=== PATIENT | female | born 1975 | race Caucasian/White ===

== ENCOUNTER 2018-11-26 20:47 | Observation (INO) ==
[2018-11-26] MEDS ORDERED: Ketorolac 30 MG/ML VIAL IVP PRN (22:10)
[2018-11-26] MEDS ORDERED: Acetaminophen 325 MG TABLET PO PRN (22:10)
[2018-11-26] MEDS ORDERED: Naloxone 0.4 MG/ML INJ IVP PRN (22:10)
[2018-11-26] MEDS ORDERED: OXYCODONE Oral CONC 10 MG/0.5 ML ORAL.SYG SL PRN (22:10)
[2018-11-26] MEDS ORDERED: Ringers Solution, Lactated 1,000 ML IVC SCH (22:15)
[2018-11-26 22:34] LABS: Basophils # 0.1 K/mcL (0.0-0.2); Basophils % 0.8 %; Eosinophils # 0.2 K/mcL (0.0-0.6); Eosinophils % 3.6 %; Hematocrit 37.9 % (35.3-44.9); Immature Granulocytes % 0.3 % (0-4); Lymphocytes # 2.6 K/mcL (0.6-4.6); Lymphocytes % 40.8 %; Mean Corpuscular HGB Conc 34.3 g/dL (31.6-35.5); Mean Corpuscular Hemoglobin 29.8 pg (28.0-33.3); Mean Corpuscular Volume 86.9 fL (83.0-100.0); Mean Platelet Volume 11.5 fL (9.4-12.4); Monocytes # 0.5 K/mcL (0.0-1.3); Monocytes % 7.3 %; Platelet Count 192 K/mcL (140-400); Red Blood Count 4.36 M/mcL (3.82-4.97); Red Cell Distribution Width 13.2 % (11.5-14.5); Segmented Neutrophils % 47.2 %; White Blood Count 6.3 K/mcL (4.3-11.1)
[2018-11-26 22:41] LABS: Prothrombin Time 11.3 Seconds (9.4-12.1)
[2018-11-26 22:44] LABS: Activated Partial Thrombo Time 34.8 Seconds (26.0-36.0)
--- NOTE | 2018-11-26 22:51 | Internal Med History&Physical ---
Date of Encounter: 11/26/18 Time of Encounter: 22:50 Internal Medicine - H&P: HPI Chief complaint: R flank pain Admitted From: Hospital to Hospital Transfer Plans for Post Hospital Care: Home History of present illness: Rebecca Clinton is a 43-year-old woman with recurrent kidney stones who has been dealing with a right flank pain for the past 3 weeks and states that thus far she has passed 2 stones but that she continues to have severe right flank pain with radiation to her right groin that was exacerbated today for which reason she decided to seek medical attention. She denies having fever, chills o r dysuria. She does notice that her urine is darker and bloody in appearance. She says she has had multiple kidney stones in the past and always on the right side but she has never had any intervention as she always spontaneously passes them. She went to [facility] emergency room where on CT she was found to have a 6 mm calculus in the proximal right ureter. Her labs are otherwise unremarkable and is transferred here for further care. Vitals: Reviewed General: Well-developed white woman lying comfortably in bed in no acute distress but has antalgic posturing. Skin: Warm, pale and dry. HEENT: Moist mucous membranes. No conjunctivae pallor. Neck: No lymphadenopathy. No JVD. No carotid bruits. No palpable thyroid. Chest: Normal thoracic expansion. Normal breath sounds. Clear to auscultation. Heart: Normal S1 & S2; rhythmic. No rubs or murmurs. Abdomen: Non-distended, soft and non-tender to palpation. (+) R CVA tenderness. Extremities: No clubbing, cyanosis or edema. No calf tenderness. Normal distal pulses. Neurological: Awake, alert and oriented to person, place and time. No focal deficits. Psych: Affect appropriate. Assessment/Plan 1. Right ureterolithiasis: Symptomatic. Will give her a dose of tamsulosin tonight and provide analgesics as needed. Will keep NPO PMN pending urology evaluation in the morning. No signs of infection present warranting antimicrobials. 2. Fibromyalgia: Reported but no longer on medications. 3. RLS: Reported but no longer on medications. 4. DVT prophylaxis: SCDs ordered. Past Med Surg Social Fam HX - Past Medical History Medical history: arthritis, asthma, fibromyalgia, GERD, kidney stones, thyroid disease, syncope Psychiatric history: anxiety, depression - Past Surgical History Surgical History: , cholecystectomy, hysterectomy - Social History Smoking Status: Former smoker Alcohol use: rarely Drug use: none Internal Medicine - H&P: Meds Allergy/AdvReac Type Severity Reaction Status Date / Time ciprofloxacin Allergy Rash Verified 11/26/18 22:17 clarithromycin [From Biaxin] Allergy Rash Verified 11/26/18 22:17 Penicillins Allergy Rash Verified 11/26/18 22:17 Sulfa (Sulfonamide Allergy Rash Verified 11/26/18 22:17 Antibiotics) All Systems PM: A 10-system review of systems was performed and is negative for pertinent findings except as documented above in the HPI. Family history reviewed and found non-contributory. - Constitutional Vitals: Temp Pulse Resp BP Pulse Ox 97.7 F 82 17 145/84 94 11/26/18 22:14 11/26/18 22:14 11/26/18 22:14 11/26/18 22:14 11/26/18 22:14 Exam: . Internal Med - H&P Results - Labs CBC & Chem 7: 11/26/18 22:25 Labs: Short CBC 11/26/18 Range/Units 22:25 WBC 6.3 (4.3-11.1) K/mcL Hgb 13.0 (11.5-15.4) g/dL Hct 37.9 (35.3-44.9) % Plt Count 192 (140-400) K/mcL Neutrophils # 3.0 (1.6-8.9) K/mcL - Time Spent With Patient Total time spent is greater than 50% in coordination of care (as documented) at patient's floor/unit and/or counseling patient: Greater than 35 minutes
[2018-11-26 22:53] LABS: BUN/Creatinine Ratio 26 (6-26); Blood Urea Nitrogen 17 mg/dL (6-20); Carbon Dioxide 25 mEq/L (23-29); Chloride 108 mEq/L (98-107); Glucose 96 mg/dL (70-105); Osmolality,Calculated 291 (280-300); Potassium 3.5 mEq/L (3.5-5.1); Sodium 140 mEq/L (136-145); eGFR For African Americans > 60 (> 60); eGFR For Non-African Americans > 60 (> 60)
[2018-11-27 07:54] VITALS: BP 131/73
--- NOTE | 2018-11-27 08:42 | Urology - Consult Note ---
<Meli Walker N - Last Filed: 11/27/18 08:39> Date of Encounter: 11/27/18 Time of Encounter: 08:00 - Assessment and Plan (1) Ureteral stone with hydronephrosis Status: Acute Assessment and plan: Patient is a 43-year-old female who presents with a 6 mm right proximal ureteral stone and hydronephrosis. Vital signs are stable and afebrile. White blood cell count and renal function are reassuring. We discussed surgical risks and benefits, and patient verbalized understanding. Patient signed consent, and she is prepared undergo a right ureteroscopic stone extraction with holmium laser lithotripsy, basket retrieval, right retrograde pyelogram and right ureteral stent placement this afternoon with Dr. Lew. Patient remained nothing by mouth. Due to the scheduling conflict in the main operating room, the patient has agreed to be discharged and will promptly undergo [facility]. Urology CN:HPI Consult date: 11/27/18 Reason for consult Urology: Hydronephrosis (right ureteral stone) Requesting physician: Lennie Bauman History of present illness: Patient is a 43-year-old female who presents with a 6 mm right proximal ureteral stone and hydronephrosis. Patient initially presented to [facility] with a 3 week history of severe right-sided flank pain, nausea and vomiting. Patient reports pain acutely worsened over the last 24 hours, and she decided to proceed to the emergency department for further evaluation. Patient underwent a CT of the abdomen and pelvis at [facility] revealing a 6 mm right proximal ureteral stone and hydronephrosis. Patient reports she has an extensive history of renal stones passed by medical expulsion, but she has never required surgery for extraction. Patient denies any known family history of r enal stones. Patient reports continued nausea, gross hematuria and flank pain. Patient denies any dysuria, urgency, frequency, fever or chills. Past Med Surg Social Fam HX - Past Medical History Medical history: arthritis, asthma, fibromyalgia, GERD, kidney stones, thyroid disease, syncope Psychiatric history: anxiety, depression - Past Surgical History Surgical History: , cholecystectomy, hysterectomy - Social History Smoking Status: Former smoker Alcohol use: rarely Drug use: none - Additional Family History Additional family history: Documented family history of renal stones Medications and Allergies Levothyroxine [Synthroid] 112 mcg PO ONCE 11/26/18 [History] Cannabidiol (Cbd) Extract [Epidiolex] 100 mg PO DAILY PRN 11/27/18 [History] HydrOXYzine 10 mg PO HS 11/27/18 [History] Montelukast [Singulair] 10 mg PO DAILY 11/27/18 [History] Allergy/AdvReac Type Severity Reaction Status Date / Time ciprofloxacin Allergy Rash Verified 11/26/18 22:17 clarithromycin [From Biaxin] Allergy Rash Verified 11/26/18 22:17 hydromorphone [From Dilaudid] Allergy Cramping Verified 11/27/18 10:25 of the Muscles Penicillins Allergy Rash Verified 11/26/18 22:17 Sulfa (Sulfonamide Allergy Rash Verified 11/26/18 22:17 Antibiotics) Review of Systems - Constitutional no chills, no fatigue, no fever(s) - EENT Nose, mouth and throat: no dizziness, no headache(s) - Cardiovascular no chest pain, no diaphoresis, no dyspnea - Respiratory no cough, no dyspnea - Gastrointestinal abdominal pain, nausea, no vomiting - Genitourinary Genitourinary: flank pain, hematuria, no difficulty urinating, no dysuria, no urinary frequency, no urinary hesitancy, no urinary incontinence, no urinary urgency - Musculoskeletal back pain, no muscle weakness - Integumentary no erythema, no rash - Neurological no confusion, no syncope - Psychiatric no anxiety, no confusion - Hematologic/Lymphatic no easy bleeding, no easy bruising - Allergic/Immunologic no throat swelling, no wheezing Exam Initial Vital Signs Temp Pulse Resp BP Pulse Ox 97.7 F 82 17 145/84 94 11/26/18 22:14 11/26/18 22:14 11/26/18 22:14 11/26/18 22:14 11/26/18 22:14 - General physical appearance Present: well developed, no distress, moderate pain - Eyes Present: PERRL, normal ocular movement - ENT Present: normal nares, no hearing loss, no congestion - Neck Present: no masses, trachea midline, no lymphadenopathy - Respiratory Present: normal respiratory effort - Cardiovascular Cardiovascular exam IM: RRR - Abdomen Abdomen: Present: soft, non tender - Integumentary Present: no rash, no abnormal pigmentation - Neurologic Present: normal coordination - Musculoskeletal Present: normal gait, other (Normal posture) Urology Results - Labs 11/26/18 22:25 11/26/18 22:25 Abnormal lab results Chloride 108 mEq/L (98-107) H 11/26/18 22:25 POC Glucose 111 mg/dL (70-99) H 11/27/18 05:10 Diabetes panel 11/26/18 Range/Units 22:25 Sodium 140 (136-145) mEq/L Potassium 3.5 (3.5-5.1) mEq/L Chloride 108 H (98-107) mEq/L Carbon Dioxide 25 (23-29) mEq/L BUN 17 (6-20) mg/dL Creatinine 0.65 (0.60-1.20) mg/dL Glucose 96 (70-105) mg/dL Calcium 9.0 (8.6-10.3) mg/dL Calcium panel 11/26/18 Range/Units 22:25 Calcium 9.0 (8.6-10.3) mg/dL Pituitary panel 11/26/18 Range/Units 22:25 Sodium 140 (136-145) mEq/L Potassium 3.5 (3.5-5.1) mEq/L Chloride 108 H (98-107) mEq/L Carbon Dioxide 25 (23-29) mEq/L BUN 17 (6-20) mg/dL Creatinine 0.65 (0.60-1.20) mg/dL Glucose 96 (70-105) mg/dL Calcium 9.0 (8.6-10.3) mg/dL Adrenal panel 11/26/18 Range/Units 22:25 Sodium 140 (136-145) mEq/L Potassium 3.5 (3.5-5.1) mEq/L Chloride 108 H (98-107) mEq/L Carbon Dioxide 25 (23-29) mEq/L BUN 17 (6-20) mg/dL Creatinine 0.65 (0.60-1.20) mg/dL Glucose 96 (70-105) mg/dL Calcium 9.0 (8.6-10.3) mg/dL All other labs normal. - Imaging CT scan - abdomen: report reviewed CT scan - pelvis: report reviewed Consult Discharge Plan - Plan Additional Instructions: Go directly to [place] for outpatient procedure Referrals: Christina Winslow, TOMMIE [Primary Care Provider] - <Leandro Lew - Last Filed: 11/27/18 11:01> Date of Encounter: 11/27/18 - Assessment and Plan (1) Hydronephrosis Status: Acute Assessment and plan: Patient transferred from outside facility with obstructing right ureteral calculus and severe pain secondary to hydronephrosis. Discussed findings and options for management. Plan: Urinary diversion with stent placement. Qualifiers: Hydronephrosis type: with ureteral calculous obstruction Qualified Code(s): N13.2 - Hydronephrosis with renal and ureteral calculous obstruction (2) Flank pain Status: Acute Assessment and plan: Secondary to hydronephrosis from obstructing right ureteral calculus. Discussed findings with patient and options for management. Plan: Laser lithotripsy of ureteral calculus and stent placement as outpatient later today. (3) Ureteral stone with hydronephrosis Status: Acute Exam Initial Vital Signs Temp Pulse Resp BP Pulse Ox 97.7 F 82 17 145/84 94 11/26/18 22:14 11/26/18 22:14 11/26/18 22:14 11/26/18 22:14 11/26/18 22:14 Urology Results - Labs 11/26/18 22:25 11/26/18 22:25 Abnormal lab results Chloride 108 mEq/L (98-107) H 11/26/18 22:25 POC Glucose 111 mg/dL (70-99) H 11/27/18 05:10 Diabetes panel 11/26/18 Range/Units 22:25 Sodium 140 (136-145) mEq/L Potassium 3.5 (3.5-5.1) mEq/L Chloride 108 H (98-107) mEq/L Carbon Dioxide 25 (23-29) mEq/L BUN 17 (6-20) mg/dL Creatinine 0.65 (0.60-1.20) mg/dL Glucose 96 (70-105) mg/dL Calcium 9.0 (8.6-10.3) mg/dL Calcium panel 11/26/18 Range/Units 22:25 Calcium 9.0 (8.6-10.3) mg/dL Pituitary panel 11/26/18 Range/Units 22:25 Sodium 140 (136-145) mEq/L Potassium 3.5 (3.5-5.1) mEq/L Chloride 108 H (98-107) mEq/L Carbon Dioxide 25 (23-29) mEq/L BUN 17 (6-20) mg/dL Creatinine 0.65 (0.60-1.20) mg/dL Glucose 96 (70-105) mg/dL Calcium 9.0 (8.6-10.3) mg/dL Adrenal panel 11/26/18 Range/Units 22:25 Sodium 140 (136-145) mEq/L Potassium 3.5 (3.5-5.1) mEq/L Chloride 108 H (98-107) mEq/L Carbon Dioxide 25 (23-29) mEq/L BUN 17 (6-20) mg/dL Creatinine 0.65 (0.60-1.20) mg/dL Glucose 96 (70-105) mg/dL Calcium 9.0 (8.6-10.3) mg/dL All other labs normal.
--- NOTE | 2018-11-27 10:17 | Discharge Summary ---
- NOTES TO OUTPATIENT PROVIDER Notes to Outpatient Provider: Discharge to ambulatory surgery center for Urological intervention today. Date of Encounter: 11/27/18 Time of Encounter: 07:15 - Discharge Diagnosis (1) Ureteral stone with hydronephrosis Priority: Primary Status: Acute Hospital course: Ms. Clinton is a 43 year old female with history of asthma, hypothyroidism, GERD, who was admitted from the OSH due to 6mm proximal R ureteric stoe and hydronephrosis. Normal WBC and renal function. Discussed with Urology and due to limited inpatient OR availabilities, the decision was made to [facility] where they are able to perform right ureteroscopic stone extraction with holmium laser lithotripsy, basket retrieval, right retrograde pyelogram and right ureteral stent placement today. Pt had agreed for the above plan and was escorted to [facility] for urological intervention. Discharge discussed with: patient, nurse, residential property consultant - Time Spent with Patient Total time spent providing and/or coordinating discharge services:25 mins - Discharge Medications Prescriptions: Continued Levothyroxine [Synthroid] 112 mcg PO ONCE Home Medications: Levothyroxine [Synthroid] 112 mcg PO ONCE 11/26/18 [History] Allergies/Adverse Reactions: Allergy/AdvReac Type Severity Reaction Status Date / Time ciprofloxacin Allergy Rash Verified 11/26/18 22:17 clarithromycin [From Biaxin] Allergy Rash Verified 11/26/18 22:17 Penicillins Allergy Rash Verified 11/26/18 22:17 Sulfa (Sulfonamide Allergy Rash Verified 11/26/18 22:17 Antibiotics) Date of admission: 11/26/18 22:03 Primary care physician: Christina Winslow CNP Consults: 11/26/18 22:09 Consult to Urology [CONS] Routine Consulting Provider: Urology Latha Reason for Consult: Transferred from [facility] for 6mm obstructive proximal ureter stone Call Completed: Yes - Constitutional Vitals: Temp Pulse Resp BP Pulse Ox 98.0 F 78 15 131/73 96 11/27/18 07:48 11/27/18 07:48 11/27/18 07:48 11/27/18 07:48 11/27/18 07:48 Exam: General: Well-developed white woman lying comfortably in bed in no acute distress Chest: Clear to auscultation. Heart: Normal S1 & S2; rhythmic. No rubs or murmurs. Abdomen: Non-distended, soft and non-tender to palpation. : (+) R CVA tenderness. Neurological: Awake, alert and oriented to person, place and time. No focal deficits. - Patient Status Disposition: Home, Self-Care Condition: Fair Functional capacity at discharge: independent ambulation - Discharge Instructions Follow Up With: Christina Winslow CNP [Primary Care Provider] - Additional Instructions: Go directly to [place] for outpatient procedure - Diet and Activity Activity: resume usual activities as tolerated Diet: other (diet order per Urology after the intervention)
== END 2018-11-27 09:18 | disposition home or self-care (01) ==
LOC: 3ANU → SUATTDRO 22:03
PROVIDERS: ADMIT Internal Medicine; ATTEND Internal Medicine

== ENCOUNTER 2018-11-27 16:04 | Observation (INO) ==
[2018-11-27] MEDS ORDERED: Acetaminophen 325 MG TABLET PO PRN (17:26)
[2018-11-27] MEDS ORDERED: Naloxone 0.4 MG/ML INJ IVP PRN (17:26)
[2018-11-27] MEDS: *HR* HYDROcodone/Acet 5/325 mg TABLET PO PRN (18:23)
[2018-11-27] MEDS: levoFLOXacin 500 MG/100 ML 500 MG/100 ML BAG IVPB SCH (18:23)
[2018-11-27] MEDS: 0.9 % Sodium Chloride 1,000 ML IVC SCH (18:23)
[2018-11-27] MEDS: Ondansetron 4 MG/2 ML VIAL IVP PRN (18:35)
[2018-11-27] MEDS: Albuterol 2.5 MG/3 ML NEBULIZER IH SCH (19:33)
[2018-11-27] MEDS: Ibuprofen 400 MG TABLET PO PRN (20:46)
[2018-11-28] MEDS: Albuterol 2.5 MG/3 ML NEBULIZER IH SCH ×7 (00:17→20:13)
[2018-11-28] MEDS: *HR* HYDROcodone/Acet 5/325 mg TABLET PO PRN ×3 (00:28→21:16)
[2018-11-28] MEDS: Ondansetron 4 MG/2 ML VIAL IVP PRN ×4 (00:29→21:16)
[2018-11-28] MEDS: *HR* OxyCODONE Immed Rel 5 MG TABLET PO PRN ×2 (01:47→08:14)
[2018-11-28] MEDS: 0.9 % Sodium Chloride 1,000 ML IVC SCH ×2 (01:50→16:26)
[2018-11-28] MEDS: levoFLOXacin 500 MG/100 ML 500 MG/100 ML BAG IVPB SCH (08:15)
--- NOTE | 2018-11-28 09:44 | Urology Progress Note ---
Date of Encounter: 11/28/18 Time of Encounter: 09:42 - Assessment and Plan (1) Reactive airway disease Current Visit: Yes Status: Acute Assessment and plan: Weaning from O2 currently down to 1 L nasal cannula with increase in oxygen saturation to 95%. Discussed case with hospitalist who will also see patient. Plan: Continue 4 hour nebulizers. Wean oxygen as able. Potential for DC home this afternoon. Qualifiers: Asthma severity: moderate Asthma persistence: persistent Asthma complication type: with acute exacerbation Qualified Code(s): J45.41 - Moderate persistent asthma with (acute) exacerbation (2) Ureteral stone with hydronephrosis Current Visit: Yes Status: Acute Assessment and plan: Uncomplicated ureteroscopy holmium laser lithotripsy and right double-J stent placement yesterday. Patient with bladder spasm and right kidney pain during to reflux through right ureteral stent. Plan: B&O suppository. When necessary oxybutynin. Progress Note Subjective: still having pain Narrative: Admitted status post outpatient ureteroscopy laser lithotripsy for reactive airway disease with difficulty maintaining oxygen saturation. Patient has remained on nasal cannula overnight with every 4 hours albuterol nebs. Complains of right flank pain with voiding. Reports wheezing is improving. Objective Initial Vital Signs Temp Pulse Resp BP Pulse Ox 98.2 F 82 16 120/75 94 11/27/18 17:35 11/27/18 17:35 11/27/18 17:35 11/27/18 17:35 11/27/18 17:35 - General physical appearance Present: well nourished, no distress, moderate pain - Respiratory Present: normal respiratory effort - Integumentary Present: no rash, no growths, no abnormal pigmentation - Musculoskeletal Present: normal posture - Psychiatric Present: oriented to time, oriented to person, oriented to place
[2018-11-28] MEDS ORDERED: *HR* Belladonna Alkaloids/Opium 30 MG RECTAL SUPPOSITORY RC ONE (09:47)
[2018-11-28] MEDS ORDERED: Ketorolac 30 MG/ML VIAL IVP ONE (09:49)
--- NOTE | 2018-11-28 10:17 | Discharge Summary ---
Date of Encounter: 11/28/18 Time of Encounter: 10:18 - Discharge Diagnosis (1) Reactive airway disease Priority: Primary Status: Acute Qualifiers: Asthma severity: moderate Asthma persistence: persistent Asthma complication type: with acute exacerbation Qualified Code(s): J45.41 - Moderate persistent asthma with (acute) exacerbation (2) Ureteral stone with hydronephrosis Priority: Secondary Status: Acute - Hospital Course Hospital course: Ms. Clinton is a 43 year old female - Time Spent with Patient Total time spent providing and/or coordinating discharge services: - Impressions Decreasing reactive airway disease with every 4 nebulizers. - Discharge Medications Prescriptions: No Action Levothyroxine [Synthroid] 112 mcg PO ONCE HydrOXYzine 10 mg PO HS Cannabidiol (Cbd) Extract [Epidiolex] 100 mg PO DAILY PRN PRN Reason: Pain Montelukast [Singulair] 10 mg PO DAILY Ciprofloxacin [Cipro] 500 mg PO BID 3 Days #6 tablet Oxybutynin [Ditropan] 5 mg PO Q8HR PRN 7 Days #20 tablet PRN Reason: Bladder irritation/frequency Tamsulosin [Flomax] 0.4 mg PO DAILY 10 Days #10 cap.er.24h Oxycodone HCl/Acetaminophen [Percocet 5-325 mg Tablet] 1 each PO Q4-6H PRN 2 Days #10 tablet PRN Reason: pain Home Medications: Levothyroxine [Synthroid] 112 mcg PO ONCE 11/26/18 [History] Cannabidiol (Cbd) Extract [Epidiolex] 100 mg PO DAILY PRN 11/27/18 [History] Ciprofloxacin [Cipro] 500 mg PO BID 3 Days #6 tablet 11/27/18 [Rx] HydrOXYzine 10 mg PO HS 11/27/18 [History] Montelukast [Singulair] 10 mg PO DAILY 11/27/18 [History] Oxybutynin [Ditropan] 5 mg PO Q8HR PRN 7 Days #20 tablet 11/27/18 [Rx] Oxycodone HCl/Acetaminophen [Percocet 5-325 mg Tablet] 1 each PO Q4-6H PRN 2 Day s #10 tablet 11/27/18 [Rx] Tamsulosin [Flomax] 0.4 mg PO DAILY 10 Days #10 cap.er.24h 11/27/18 [Rx] Allergies/Adverse Reactions: Allergy/AdvReac Type Severity Reaction Status Date / Time ciprofloxacin Allergy Rash Verified 11/26/18 22:17 clarithromycin [From Biaxin] Allergy Rash Verified 11/26/18 22:17 hydromorphone [From Dilaudid] Allergy Cramping Verified 11/27/18 10:25 of the Muscles Penicillins Allergy Rash Verified 11/26/18 22:17 Sulfa (Sulfonamide Allergy Rash Verified 11/26/18 22:17 Antibiotics) Date of admission: 11/27/18 16:58 Exam Initial Vital Signs Temp Pulse Resp BP Pulse Ox 98.2 F 82 16 120/75 94 11/27/18 17:35 11/27/18 17:35 11/27/18 17:35 11/27/18 17:35 11/27/18 17:35 - General physical appearance Present: well developed, well nourished, moderate pain - Eyes Present: normal ocular movement - ENT Present: normal nares, normal mucosa - Neck Present: trachea midline - Respiratory Present: normal respiratory effort - Abdomen Abdomen: Absent: guarding - Integumentary Present: no rash, no growths, no abnormal pigmentation - Neurologic Present: normal coordination - Musculoskeletal Present: other (Normal posture) - Patient Status Disposition: Home, Self-Care Condition: Good Functional capacity at discharge: independent ambulation Overall status at discharge: patient is progressing back to baseline - Discharge Instructions Instructions: Ureteral Stent Placement (DC) - Diet and Activity Activity: resume usual activities as tolerated Diet: regular diet
--- NOTE | 2018-11-28 11:20 | Internal Medicine Consult Note ---
Date of Encounter: 11/28/18 Time of Encounter: 09:30 - Assessment and Plan (1) Reactive airway disease Current Visit: Yes Status: Acute Assessment and plan: Mild exacerbation of asthma in the post op setting ?allergic reaction. Required 2 L of oxygen overnight which is now weaned to room air reports symptomatic improvement overnight after bronchodilators no fever noted would recommend a short course of PO Prednisone 40mg for 5 days and resume home inhalers at home. Pt also has a nebulizer at home which she can use outpatient pulmonary follow up Qualifiers: Asthma severity: moderate Asthma persistence: persistent Asthma complication type: with acute exacerbation Qualified Code(s): J45.41 - Moderate persistent asthma with (acute) exacerbation (2) Ureteral stone with hydronephrosis Current Visit: Yes Status: Acute Assessment and plan: s/p R ureteric stent insertion, POD#1 mx per primary - Time Spent With Patient Total time spent is greater than 50% in coordination of care (as documented) at patient's floor/unit and/or counseling patient: 25 - 35 minutes (Discussed with the primary team) Internal Medicine - CN: HPI - Data of Consult Patient: known to practice within the last 3 years Consult date: 11/28/18 Requesting Physician: Leandro Lew - Consult Narrative Reason for consult: Postop hypoxia History of present illness: Ms. Clinton is a 43 year old female with history of asthma who was admitted yesterday due to right ureteric stone and hydronephrosis was admitted for observation overnight after R ureteral stent placement. Apparently, she developed severe bronchospasm requiring 2L of O2 after the procedure and was unable to wean off. Patient reports significant improvement in her breathing after series of bronchodilators overnight and denies any chest pain. She does report multiple drug and food allergies for which she is on "allergy shot". She also takes Symbicort for asthma, denies any fever/chills, sore throat, runny nose, runny eyes, or recent sick contacts. At the time of my interview, patient's o2 sat had been weaned to room air and she was maintaining saturation in 93-94%. Past Med Surg Social Fam HX - Past Medical History Attestation: Yes The following information was validated with the patient. Medical history: arthritis, asthma, fibromyalgia, GERD, hyperlipidemia, hype rtension, kidney stones, thyroid disease, syncope Additional medical history: [place] virus, neuro encephalitis, rsl, chronic fatigue, neuropathy, Psychiatric history: anxiety, depression - Past Surgical History Surgical History: , cholecystectomy, hysterectomy - Social History Smoking Status: Former smoker Smokeless Tobacco Status: No Alcohol use: rarely Drug use: none - Family History Mother Hx Family Cardiac Disorders: Yes Hx Family Respiratory Disorders: Yes Hx Family Cancer: Yes Hx Family GI Disorders: Yes Hx Family Genitourinary Disorders: No Hx Family Endocrine Disorder: Yes Hx Family Musculoskeletal Disorders: No Hx Family Neuromuscular Disorders: No Hx Family Neurologic Disorders: No Hx Family HEENT Disorders: No Hx Family Autoimmune Disorders: Yes Hx Family Reproductive Disorders: No Hx Family Psychosocial Disorders: No Father Hx Family Cardiac Disorders: Yes (dvts) Hx Family Endocrine Disorder: Yes Hx Family Medical Disorders: Yes (morbid obesity) All systems: reviewed and no additional remarkable complaints except as stated Internal Medicine - CN: Meds Levothyroxine [Synthroid] 112 mcg PO ONCE 11/26/18 [History] Cannabidiol (Cbd) Extract [Epidiolex] 100 mg PO DAILY PRN 11/27/18 [History] Ciprofloxacin [Cipro] 500 mg PO BID 3 Days #6 tablet 11/27/18 [Rx] HydrOXYzine 10 mg PO HS 11/27/18 [History] Montelukast [Singulair] 10 mg PO DAILY 11/27/18 [History] Oxybutynin [Ditropan] 5 mg PO Q8HR PRN 7 Days #20 tablet 11/27/18 [Rx] Oxycodone HCl/Acetaminophen [Percocet 5-325 mg Tablet] 1 each PO Q4-6H PRN 2 Days #10 tablet 11/27/18 [Rx] Tamsulosin [Flomax] 0.4 mg PO DAILY 10 Days #10 cap.er.24h 11/27/18 [Rx] predniSONE [PredniSONE] 40 mg PO DAILY 4 Days #8 tablet 11/28/18 [Rx] Allergy/AdvReac Type Severity Reaction Status Date / Time ciprofloxacin Allergy Rash Verified 11/26/18 22:17 clarithromycin [From Biaxin] Allergy Rash Verified 11/26/18 22:17 hydromorphone [From Dilaudid] Allergy Cramping Verified 11/27/18 10:25 of the Muscles Penicillins Allergy Rash Verified 11/26/18 22:17 Sulfa (Sulfonamide Allergy Rash Verified 11/26/18 22:17 Antibiotics) Hospitalist - CN: Exam - Constitutional Vitals: Temp Pulse Resp BP Pulse Ox 97.1 F L 75 18 118/75 92 11/28/18 08:01 11/28/18 08:01 11/28/18 11:02 11/28/18 08:01 11/28/18 11:02 Exam: General: Alert and oriented, not in acute distress. HEENT:EOMI, pupils equal, round and reactive. Cardiovascular:Normal S1 & S2, No JVD. Pulse regular. Lungs: Minimal, scattered wheezes R>L. No rhonchi or rales appreciated Abdomen:Soft, non-tender, no rigidity. Extremities:No deformity or swelling Neurological:Normal cognition and motor skills. Non-focal Skin:Normal color, no rash, no lesions. Pulses:Carotid and radial pulses normal +2. Rest of the physical exam is non contributory Consult Discharge Plan - Plan Instructions: Ureteral Stent Placement (DC) Prescriptions: predniSONE [PredniSONE] 40 mg PO DAILY 4 Days #8 tablet
[2018-11-28] MEDS: predniSONE 20 MG TABLET PO SCH (11:31)
[2018-11-28] MEDS: Ibuprofen 400 MG TABLET PO PRN ×2 (11:32→19:44)
[2018-11-29] MEDS: Albuterol 2.5 MG/3 ML NEBULIZER IH SCH ×3 (00:13→07:36)
[2018-11-29] MEDS: 0.9 % Sodium Chloride 1,000 ML IVC SCH (00:22)
[2018-11-29] MEDS: *HR* OxyCODONE Immed Rel 5 MG TABLET PO PRN (00:42)
[2018-11-29] MEDS: *HR* HYDROcodone/Acet 5/325 mg TABLET PO PRN ×3 (05:45→19:19)
[2018-11-29] MEDS: Ondansetron 4 MG/2 ML VIAL IVP PRN (05:45)
[2018-11-29] MEDS: LEVOCETIRIZINE 5 MG PO SCH (06:24)
[2018-11-29] MEDS: predniSONE 20 MG TABLET PO SCH (08:56)
[2018-11-29] MEDS: levoFLOXacin 500 MG/100 ML 500 MG/100 ML BAG IVPB SCH (08:57)
--- NOTE | 2018-11-29 09:01 | Urology Progress Note ---
Date of Encounter: 11/29/18 Time of Encounter: 08:59 - Assessment and Plan (1) Reactive airway disease Current Visit: Yes Status: Acute Assessment and plan: Remains in house on nebulizer treatments. Unable to wean off O2 and maintained sats above 90. Appreciate hospitalist input and addition of steroid taper. Plan: Potential discharge home later today if cleared per hospitalist service. Patient continues with requirements for admission due to reactive airway disease, will ask hospitalist service to assume management as there are no active urologic issues. Qualifiers: Asthma severity: moderate Asthma persistence: persistent Asthma complication type: with acute exacerbation Qualified Code(s): J45.41 - Modera te persistent asthma with (acute) exacerbation (2) Ureteral stone with hydronephrosis Current Visit: Yes Status: Acute Assessment and plan: Poor stent toleration status post ureteroscopy laser lithotripsy and stent placement. Patient on oxybutynin, tamsulosin and Pyridium. Progress Note Subjective: still having pain, shortness of breath Objective Initial Vital Signs Temp Pulse Resp BP Pulse Ox 98.2 F 82 16 120/75 94 11/27/18 17:35 11/27/18 17:35 11/27/18 17:35 11/27/18 17:35 11/27/18 17:35 - General physical appearance Present: well nourished - Respiratory Present: other (On nebulizer treatment with nasal cannula in place) - Abdomen Present: non tender - Integumentary Present: no rash, no growths - Musculoskeletal Present: normal posture - Psychiatric Present: oriented to time, oriented to person, oriented to place Consult Discharge Plan - Plan Instructions: Ureteral Stent Placement (DC) Prescriptions: predniSONE [PredniSONE] 40 mg PO DAILY 4 Days #8 tablet
[2018-11-29] MEDS ORDERED: predniSONE 5 MG TABLET PO ONE (10:14)
[2018-11-29] MEDS ORDERED: Furosemide 20 MG/2 ML VIAL IVP ONE (10:14)
[2018-11-29 11:01] LABS: Adenovirus Not Detected (Not Detect); Bordetella Pertussis Not Detected (Not Detect); Chlamydophila pneumoniae Not Detected (Not Detect); Coronavirus 229E Not Detected (Not Detect); Coronavirus HKU1 Not Detected (Not Detect); Coronavirus NL63 Not Detected (Not Detect); Coronavirus OC43 Not Detected (Not Detect); Human Metapneumovirus Not Detected (Not Detect); Human Rhinovirus/Enterovirus Not Detected (Not Detect); Influenza A Subtype 2009 H1 Not Detected (Not Detect); Influenza A Untypeable Not Detected (Not Detect); Influenza B Not Detected (Not Detect); Mycoplasma pneumoniae Not Detected (Not Detect); Parainfluenza Virus 1 Not Detected (Not Detect); Parainfluenza Virus 2 Not Detected (Not Detect); Parainfluenza Virus 3 Not Detected (Not Detect); Parainfluenza Virus 4 Not Detected (Not Detect); Respiratory Syncytial Virus Not Detected (Not Detect)
[2018-11-29] MEDS: Ipratropium/Albuterol Neb 3 ML IH SCH ×4 (11:14→23:53)
--- NOTE | 2018-11-29 12:39 | Internal Med Progress Note ---
Hospitalist Progress Note - Encounter Date of Encounter: 11/29/18 Time of Encounter: 12:00 - Subjective Interval History: continues to have intermittent episodes of SOB and congestion. No chest pain or hemoptysis. - Exam Vitals: Temp Pulse Resp BP Pulse Ox 98.1 F 72 26 125/80 99 11/29/18 11:40 11/29/18 11:40 11/29/18 11:40 11/29/18 11:40 11/29/18 11:40 Exam: General: Alert and oriented, not in acute distress. Cardiovascular:Normal S1 & S2, No JVD. Pulse regular. Lungs: scattered wheezes R>L. No rhonchi or rales appreciated Abdomen:Soft, non-tender, no rigidity. Extremities:No deformity or swelling Neurological:Normal cognition and motor skills. Non-focal - Assessment and Plan (1) Reactive airway disease Current Visit: Yes Status: Acute Assessment and Plan: Mild exacerbation of asthma in the post op setting ?allergic reaction. Continue to required 1-2 L of oxygen started on PO Prednisone yesterday, will continue at 60mg daily check CXR, respiratory infection panel of note, pt is on levaquin 500mg from Urology. Would increase to 750mg if clinical suspicion for PNA is present after CXR will continue to monitor through the day and if she is weaned off on O2, would discharge her on steroid +/- levaquin depending on CXR if pt is not able to be weaned off on O2, would consider CTA and will take over as a primary team outpatient pulmonary follow up (2) Ureteral stone with hydronephrosis Current Visit: Yes Status: Acute Assessment and Plan: s/p R ureteric stent insertion, POD#2 mx per Urology DVT Prophylaxis: EPCD - Time Spent with Patient Total time spent is greater than 50% in coordination of care (as documented) at patient's floor/unit and/or counseling patient: 25 - 35 minutes Plan of Care Discussed with: patient (discussed with RN) Internal Medicine: Result - Impressions Impressions Chest X-Ray 11/29/18 08:20 IMPRESSION: Airspace opacity at the left lung base, may be related to atelectasis versus pneumonia. Low lung volumes. D/ / Darell Bender MD / Darell Bender MD Interpreting Provider: Darell Bender MD Consult Discharge Plan - Plan Instructions: Ureteral Stent Placement (DC) Prescriptions: predniSONE [PredniSONE] 40 mg PO DAILY 4 Days #8 tablet (1) Reactive airway disease Qualifiers: Asthma severity: moderate Asthma persistence: persistent Asthma complication type: with acute exacerbation Qualified Code(s): J45.41 - Moderate persistent asthma with (acute) exacerbation
[2018-11-29] MEDS: Ibuprofen 400 MG TABLET PO PRN (13:23)
[2018-11-29] MEDS ORDERED: Isovue-370 500 ML BOTTLE IVP ONE (13:28)
[2018-11-30] MEDS: *HR* OxyCODONE Immed Rel 5 MG TABLET PO PRN (01:44)
[2018-11-30] MEDS: Ondansetron 4 MG/2 ML VIAL IVP PRN (01:44)
[2018-11-30] MEDS: Ipratropium/Albuterol Neb 3 ML IH SCH ×3 (04:48→11:00)
[2018-11-30] MEDS: LEVOCETIRIZINE 5 MG PO SCH (05:58)
[2018-11-30] MEDS: *HR* HYDROcodone/Acet 5/325 mg TABLET PO PRN (08:37)
[2018-11-30] MEDS ORDERED: levoFLOXacin 750 MG/150 ML 750 MG/150 ML BAG IVPB SCH (09:00)
[2018-11-30] MEDS ORDERED: predniSONE 20 MG TABLET PO SCH (09:00)
--- NOTE | 2018-11-30 09:06 | Urology Progress Note ---
Date of Encounter: 11/30/18 Time of Encounter: 07:50 - Assessment and Plan (1) Ureteral stone with hydronephrosis Current Visit: Yes Status: Acute Assessment and plan: Patient is a 43-year-old female who presents 3 days status post right ureteroscopic stone extraction, right retrograde pyelogram, and right ureteral stent placement. Patient reports some discomfort is improving. Current O2 saturation is 86% on room air, and patient's lips appear dusky. Nurse in room, and she is contacting primary team and pulmonology. Patient in no apparent distress, and she is voicing desire for discharge. I explained to patient she m ay be considered for discharge from a urologic standpoint, but her breathing must be stabilized maintaining adequate O2 sat on room air before she is considered for discharge. Progress Note Narrative: POD #3. Patient seen and examined sitting upright in bed in no apparent distress. Patient tolerating normal diet without nausea or vomiting. Patient is voiding without difficulty. Patient admits to continued breathing difficulty. Patient denies fever, chills or severe flank pain. Objective Initial Vital Signs Temp Pulse Resp BP Pulse Ox 98.2 F 82 16 120/75 94 11/27/18 17:35 11/27/18 17:35 11/27/18 17:35 11/27/18 17:35 11/27/18 17:35 - General physical appearance Present: no distress, no pain - Respiratory Present: normal expansion - Abdomen Present: soft, non tender. Absent: distended - Genitourinary Present: other (no CVAT) - Integumentary Present: no rash, no abnormal pigmentation - Musculoskeletal Present: normal gait, normal posture - Psychiatric Present: oriented to time, oriented to person, oriented to place, speech is normal, memory intact - VTE Documentation of Mechanical Device: Intermittent pneumatic compression device Consult Discharge Plan - Plan Instructions: Ureteral Stent Placement (DC) Prescriptions: predniSONE [PredniSONE] 40 mg PO DAILY 4 Days #8 tablet
--- NOTE | 2018-11-30 09:46 | Discharge Summary ---
- NOTES TO OUTPATIENT PROVIDER Notes to Outpatient Provider: Follow up with pulmonology as outpatient Orders not resulted at time of discharge: Pending orders 11/29/18 10:13 MRSA Surveillance Screen [MOLMIC] Routine Date of Encounter: 11/30/18 Time of Encounter: 07:45 - Discharge Diagnosis (1) Reactive airway disease Priority: Primary Status: Acute Qualifiers: Asthma severity: moderate Asthma persistence: persistent Asthma complication type: with acute exacerbation Qualified Code(s): J45.41 - Moderate persistent asthma with (acute) exacerbation (2) Ureteral stone with hydronephrosis Priority: Secondary Status: Acute Hospital course: Ms. Clinton is a 43 year old female - Time Spent with Patient Total time spent providing and/or coordinating discharge services: - Discharge Medications Prescriptions: New predniSONE [PredniSONE] 40 mg PO DAILY 4 Days #8 tablet Tamsulosin [Flomax] 0.4 mg PO DAILY #10 capsule levoFLOXacin [Levaquin] 750 mg PO DAILY 5 Days #5 tablet Budesonide/Formoterol 80/4.5 [Symbicort] 2 puff IH BID #1 inhaler Continued Levothyroxine [Synthroid] 112 mcg PO DAILY HydrOXYzine 10 mg PO HS Cannabidiol (Cbd) Extract [Epidiolex] 100 mg PO DAILY Montelukast [Singulair] 10 mg PO DAILY Levocetirizine Dihydrochloride [Allergy Relief (Xyzal)] 5 mg PO DAILY Home Medications: Levothyroxine [Synthroid] 112 mcg PO DAILY 11/26/18 [History] Cannabidiol (Cbd) Extract [Epidiolex] 100 mg PO DAILY 11/27/18 [History] HydrOXYzine 10 mg PO HS 11/27/18 [History] Montelukast [Singulair] 10 mg PO DAILY 11/27/18 [History] predniSONE [PredniSONE] 40 mg PO DAILY 4 Days #8 tablet 11/28/18 [Rx] Levocetirizine Dihydrochloride [Allergy Relief (Xyzal)] 5 mg PO DAILY 11/29/18 [History] Budesonide/Formoterol 80/4.5 [Symbicort] 2 puff IH BID #1 inhaler 11/30/18 [Rx] Tamsulosin [Flomax] 0.4 mg PO DAILY #10 capsule 11/30/18 [Rx] levoFLOXacin [Levaquin] 750 mg PO DAILY 5 Days #5 tablet 11/30/18 [Rx] Allergies/Adverse Reactions: Allergy/AdvReac Type Severity Reaction Status Date / Time ciprofloxacin Allergy Rash Verified 11/29/18 12:00 clarithromycin [From Biaxin] Allergy Rash Verified 11/29/18 12:00 hydromorphone [From Dilaudid] Allergy Cramping Verified 11/29/18 12:00 of the Muscles Penicillins Allergy Rash Verified 11/29/18 12:00 Sulfa (Sulfonamide Allergy Rash Verified 11/29/18 12:00 Antibiotics) Date of admission: 11/27/18 16:58 - Constitutional Vitals: Temp Pulse Resp BP Pulse Ox 98.4 F 88 16 128/79 93 11/30/18 06:44 11/30/18 06:44 11/30/18 07:41 11/30/18 06:44 11/30/18 07:41 - Patient Status Disposition: Home, Self-Care Condition: Good - Discharge Instructions Instructions: Ureteral Stent Placement (DC) - VTE Documentation of Mechanical Device: Intermittent pneumatic compression device
--- NOTE | 2018-11-30 09:49 | Internal Med Progress Note ---
Hospitalist Progress Note - Encounter Date of Encounter: 11/30/18 Time of Encounter: 07:45 - Subjective Interval History: Appears to be breathing more comfortably today. No fever/chills overnight - Exam Vitals: Temp Pulse Resp BP Pulse Ox 98.4 F 88 16 128/79 93 11/30/18 06:44 11/30/18 06:44 11/30/18 07:41 11/30/18 06:44 11/30/18 07:41 Exam: General: Alert and oriented, not in acute distress. Cardiovascular:Normal S1 & S2, No JVD. Pulse regular. Lungs: scattered wheezes R>L. No rhonchi or rales appreciated Abdomen:Soft, non-tender, no rigidity. Extremities:No deformity or swelling Neurological:Normal cognition and motor skills. Non-focal - Assessment and Plan (1) Reactive airway disease Current Visit: Yes Status: Acute Assessment and Plan: Mild exacerbation of asthma in the post op setting ?allergic reaction. CT also showed LLL PNA but no PE Resp viral panel -ve D2 PO Prednisone 60mg, will complete 5 more days of PO 40mg. plan to discharge her on 5 more days of Levaquin and symbicort with pulmonology follow up. 6 min walk test -> if she qualifies for O2, will write a script for it (2) Ureteral stone with hydronephrosis Current Visit: Yes Status: Acute Assessment and Plan: s/p R ureteric stent insertion, POD#3 mx per Urology - Summary of Assessment and Plan Summary of Assessment and Plan: discussed with Urology team - Time Spent with Patient Total time spent is greater than 50% in coordination of care (as documented) at patient's floor/unit and/or counseling patient: 25 - 35 minutes Plan of Care Discussed with: patient Internal Medicine: Result - Impressions Impressions Chest CTA 11/29/18 13:28 IMPRESSION: 1. Negative for acute pulmonary embolism 2. Consolidation in the left lower lobe could represent atelectasis or pneumonia D/ / Raymundo Limon MD / Raymundo Limon MD Interpreting Provider: Raymundo Limon MD - VTE Documentation of Mechanical Device: Intermittent pneumatic compression device Consult Discharge Plan - Plan Instructions: Ureteral Stent Placement (DC) Prescriptions: Tamsulosin [Flomax] 0.4 mg PO DAILY #10 capsule levoFLOXacin [Levaquin] 750 mg PO DAILY 5 Days #5 tablet predniSONE [PredniSONE] 40 mg PO DAILY 4 Days #8 tablet Budesonide/Formoterol 80/4.5 [Symbicort] 2 puff IH BID #1 inhaler (1) Reactive airway disease Qualifiers: Asthma severity: moderate Asthma persistence: persistent Asthma complication type: with acute exacerbation Qualified Code(s): J45.41 - Moderate persistent asthma with (acute) exacerbation
[2018-11-30 10:47] VITALS: BP 128/84
[2018-11-30] MEDS: Ibuprofen 400 MG TABLET PO PRN (12:38)
== END 2018-11-30 15:24 | disposition home or self-care (01) ==
LOC: 3BNU → SUATTDRO 16:58
PROVIDERS: ADMIT Urology; ATTEND Internal Medicine